=== PATIENT | male | born 1995 | race Hispanic/Latino ===

== ENCOUNTER 2022-06-16 10:27 | Emergency (ER) | payer SELFPAY ==
--- NOTE | 2022-06-16 10:36 | ED.URI ---
HPI - URI/Sore Throat General Chief Complaint: Upper Respiratory Infection Stated Complaint: Cough/Fever/SOB Time Seen by Provider: 06/16/22 10:37 Source: patient Mode of arrival: ambulatory Limitations: no limitations History of Present Illness HPI Narrative: John is a 27-year-old male patient presenting to the clinic today with complaints of cough, fever, shortness of breath times 2-3 days. He reports he is short of breath with exertion as well as talking. Rate shortness breath a 6/10 currently. He denies any chest pain. Productive cough with yellow phlegm. History of scoliosis and bad pneumonia in the past that caused him to be admitted [facility] while he was in a coma MD elicited complaint: fever, cough and other (Shortness of breath) Related Data Home Medications Medication Instructions Recorded Confirmed No Home Medications 06/16/22 06/16/22 Allergies Allergy/AdvReac Type Severity Reaction Status Date / Time No Known Allergies Allergy Verified 06/16/22 10:46 Review of Systems Review of Systems: Pertinent positives per HPI. Patient denies any rash, headache, visual changes, dizziness, chest pain, palpitations, nausea, vomiting, diarrhea, constipation, abdominal pain, or any urinary issues. [facility] Past Medical History Medical History (Updated 06/16/22 @ 14:15 by Tamar Franco PA-C) Morbid obesity Scoliosis Social History Social History (Updated 06/16/22 @ 14:13 by Tamar Franco PA-C) Social History: Surrogate medical decision maker: Alyson Field, sister. Code status: Full code. Comments At the time of my signature, I reviewed and agree with the nursing past medical, surgical, social, and family history. There is no relevant family history pertinent to the patient complaint. Exam Narrative: General: Well-developed, well nourished, in mild distress, severe scoliosis, short stature Head: Normocephalic, atraumatic Eyes: Pupils equally round and reactive to light bilaterally, EOM intact, sclera and conjunctive clear, no discharge, lids normal Ears: TMs intact and clear, ear canals clear, no drainage, grossly hearing normal. Nose: Nares patent, clear nasal discharge, no inflammation, no sinus tenderness. Mouth: Oral pharynx without lesions or masses, good dentition, MMM. Neck: Supple, trachea midline, no enlargement of anterior or posterior cervical nodes, no thyroid masses or goiter palpable. Cardio: Tachycardic- regular rate and rhythm, s1 and s2 normal, no murmur appreciated. Resp: Lungs sounds absent on left posterior lung treviño, no rhonchi, rales, wheezing or rubs, no retractions, SpO2 initially 83% on room air-worst was 80%-placed on 5 L of O2 via nasal cannula and SpO2 increase to 97% Extremities: No deformity, no edema, dusky nail beds, capillary refill greater than 3 seconds, peripheral pulses palpable and strong. Course Course Emergency Course: Portions of this record may have been created with voice recognition software. Level of Care: Express Care Visit Vital Signs Vital signs: Vital Signs Temperature 39.6 C H 06/16/22 10:43 Pulse Rate 127 H 06/16/22 10:43 Respiratory Rate 22 H 06/16/22 10:43 Blood Pressure 157/99 H 06/16/22 10:43 Pulse Oximetry 83 L 06/16/22 10:43 Oxygen Delivery Room Air 06/16/22 10:43 Temperature 39.6 C H 06/16/22 10:43 Pulse Rate 121 H 06/16/22 11:58 Respiratory Rate 28 H 06/16/22 11:58 Blood Pressure 157/99 H 06/16/22 10:43 Pulse Oximetry 96 06/16/22 11:58 Oxygen Delivery Nasal Cannula 06/16/22 11:58 Oxygen Flow Rate 4 06/16/22 11:58 Vital signs reviewed MDM - URI/Sore Throat MDM Narrative Medical decision making narrative: At the time of visit patient is resting on exam table. O2 at 5 L placed on patient via nasal cannula and that brought his SpO2 up to 97%. COVID test was obtained and was positive in the clinic today. Recommend transfer to the ER for further evaluation and gabe
[2022-06-16 10:43] VITALS: BP 157/99; PULSE 127; RESP 22; TEMP 39.6; O2SAT 83
[2022-06-16 10:46] VITALS: PULSE 136; RESP 30; O2SAT 80
[2022-06-16] MEDS: ACETAMINOPHEN 500 MG TABLET 1000 MG PO (10:56)
[2022-06-16 11:03] VITALS: PULSE 120; RESP 28; O2SAT 95
[2022-06-16 11:58] VITALS: PULSE 121; RESP 28; O2SAT 96
== END 2022-06-16 11:03 | disposition short-term general hospital (02) ==
PROVIDERS: Emergency Provider Nurse Practitioner Family
DX: U07.1 COVID-19 (principal); R09.02 Hypoxemia; R06.02 Shortness of breath
CPT/HCPCS: 87426; 99205; A9270; C9803; G0463

== ENCOUNTER 2022-06-16 11:18 | Inpatient (IN) | payer SELFPAY ==
[2022-06-16] VITALS (16 sets, daily range): BP systolic 139–160; BP diastolic 70–111; PULSE 82–118; RESP 20–34; TEMP 36.9–39.7; O2SAT 92–99
--- NOTE | ~2022-06-16 | XR_ITS ---
EXAMINATION: XR chest 1V portable DATE: 06/16/2022 11:54 INDICATION: Shortness of breath. Fever. TECHNIQUE: A single frontal view of the chest was obtained. COMPARISON: None. FINDINGS: There are airspace opacities in the right mid and lower lung zones and left perihilar regio n. No pleural effusion or pneumothorax. Cardiomegaly is noted. There is a fixation dolly overlying the spine. IMPRESSION: 1. Airspace opacities in right mid and lower lung zones and left perihilar region, consistent with pn eumonia. 2. Cardiomegaly. Reviewed, dictated and finalized at location A. [facility] [employer] IMPRESSION: 1. Airspace opacities in right mid and lower lung zones and left perihilar nanci on, consistent with pneumonia. 2. Cardiomegaly.
--- NOTE | 2022-06-16 11:18 | ECG_ITS ---
Measurements Intervals [place] Rate: 120 P: 47 NC: 157 QRS: 188 QRSD: 137 T: 19 QT: 337 QTc: 476 Interpretive Statements SINUS TACHYCARDIA ATRIAL PREMATURE COMPLEX RIGHT BUNDLE BRANCH BLOCK LEFT POSTERIOR FASCICULAR BLOCK BASELINE WANDER- V3 ABNORMAL ECG NO PREVIOUS ECG AVAILABLE FOR COMPARISON Electronically Signed On 06-16-2022 14:37:08 INSTRUMENT ASSEMBLER by Clayton Smith D.O.
[2022-06-16 11:40] LABS: Alveolar/Arterial O2 Gradient 177.8 mmHg; Base Excess ABG 0.7 mEq/l (+/-2.0); Device NASAL CANNULA; Fractional Inspired Oxygen 44 %; HCO3 ABG 27.2 mEq/l (22.0-26.0); Modified Allen's Test Pass; Oxygen Content ABG 20.8 %vol (16.0-22.0); Oxyhemoglobin 93.5 % THb (90.0-100.0); PCO2 ABG 50.3 mmHg (35.0-45.0); PO2 ABG 78.6 mmHg (80.0-100.0); PO2 FiO2 Ratio Arterial Blood 1.79 %; Site Drawn RIGHT RADIAL; Total Hemoglobin 15.8 g/dL (12.0-18.0); pH ABG 7.351 (7.350-7.450)
[2022-06-16 11:56] LABS: Basophils Percent Auto 0.3 % (0.2-1.2); Eosinophils Absolute Auto 0.2 K/mm3 (0-0.3); Eosinophils Percent Auto 1.7 % (0-4.4); Hematocrit 47.7 % (42.0-52.0); Hemoglobin 15.4 g/dL (14.0-18.0); Immature Granulocyte Absolute 0.26 K/mm3 (0.00-0.031); Immature Granulocyte Percent A 2.7 % (0-0.5); Lymphocytes Absolute Auto 1.04 K/mm3 (0.9-3.2); Lymphocytes Percent Auto 10.7 % (18.3-44.2); Mean Corpuscular HGB Conc 32.3 g/dl (32-36); Mean Corpuscular Hemoglobin 30.3 pg (26-34); Mean Corpuscular Volume 93.7 fl (80-100); Mean Platelet Volume 10.7 fl (7.4-10.4); Monocytes Percent Auto 10.2 % (2.6-8.5); Neutrophils Absolute Auto 7.2 K/mm3 (1.3-6.7); Neutrophils Percent Auto 74.4 % (45.5-73.1); Platelet Count Result 141 k/mm3 (150-375); Red Blood Count 5.09 M/mm3 (4.6-6.20); Red Cell Distribution Width 12.5 % (11.5-14.5); White Blood Count 9.7 K/mm3 (4.5-10.0)
[2022-06-16 12:06] LABS: INR 1.1; Prothrombin Time 13.6 Seconds (11.1-14.7)
[2022-06-16 12:07] LABS: Partial Thromboplastin Time 29.8 SECONDS (22.3-36.8)
[2022-06-16 12:11] LABS: Alanine Aminotransferase 76 U/L (6-50); Albumin Level 4.3 g/dL (3.5-5.1); Alkaline Phosphatase 66 U/L (38-126); Anion Gap 7 mmol/L (8-16); Aspartate Amino Transferase 48 U/L (17-59); Bilirubin,Total 0.4 mg/dL (0.2-1.3); Blood Urea Nitrogen 11 mg/dL (9-20); Calcium 8.3 mg/dL (8.4-10.2); Carbon Dioxide 28 mmol/L (22-30); Chloride 104 mmol/L (98-107); Estimated Glomerular Filt Rate > 60; Glucose 111 mg/dL (65-110); Potassium 4.4 mmol/L (3.4-5.0); Sodium 139 mmol/L (137-145)
[2022-06-16 12:20] LABS: NT Pro B Type Natriuretic Pept < 20 pg/mL (19.9-100)
[2022-06-16] MEDS: SODIUM CHLORIDE 0.9% IV 1,000 ML 999 ML IV CONT (12:33)
--- NOTE | 2022-06-16 12:51 | ED.SOB ---
HPI - SOB/Dyspnea General Chief Complaint: Shortness of Breath/Dyspnea Stated Complaint: COVID+, SOB History of Present Illness HPI Narrative: Patient is a 27-year-old male who presents ER with shortness of breath. Reports she started having a sore throat 3 days ago with productive cough. Woke up this morning was very short of breath. Found to be hypoxic at the urgent care. He was also COVID-positive. He is vaccinated. No chest pain or chest pressure. No other complaints. He has history of pneumonia in the past that required him to be trached. Related Data Home Medications Medication Instructions Recorded Confirmed No Home Medications 06/16/22 06/16/22 Allergies Allergy/AdvReac Type Severity Reaction Status Date / Time No Known Allergies Allergy Verified 06/16/22 10:46 Review of Systems Review of Systems: All systems reviewed & are unremarkable except as noted in HPI and below Constitutional: Constitutional: Denies chills, Reports fatigue and Denies fever(s) ENT: Denies nasal congestion and Reports sore throat Cardiovascular: Cardiovascular: Reports chest pain, Denies rapid heart rate and Denies radiating jaw, neck or arm pain Respiratory: Respiratory: Reports cough, Reports dyspnea and Denies wheezing Gastrointestinal: Gastrointestinal: Denies abdominal pain, Denies nausea and Denies vomiting PMFSH Past Medical History Medical History (Updated 06/16/22 @ 19:26 by David Connolly MD) Morbid obesity Scoliosis Surgical History Surgical History (Updated 06/16/22 @ 19:25 by David Connolly MD) History of back surgery History of tracheostomy Social History Social History (Updated 06/16/22 @ 14:13 by Tamar Franco PA-C) Social History: Surrogate medical decision maker: Alyson Field, sister. Code status: Full code. Exam Narrative: GENERAL: Well-appearing, morbidly obese, and in no acute distress. HEAD: Normocephalic, atraumatic. EYES: PERRL and EOMI. ENT: Mucous membranes moist. CHEST: Clear to auscultation. No respiratory distress. HEART: Tachycardic and regular. Normal peripheral pulses. ABDOMEN: Soft, nontender, nondistended. EXTREMITIES: Normal range of motion. No edema. SKIN: Warm, dry, no rash. NEURO: Alert and oriented x3. PSYCH: Normal mood and affect. Course Course Emergency Course: Patient resting comfortably. Informed of results. Patient given Decadron and will likely require remdesivir which hospitalist service will administer. Accepted by hospitalist service. Vital Signs Vital signs: Vital Signs Temperature 103.5 F H 06/16/22 11:26 Pulse Rate 118 H 06/16/22 11:26 Respiratory Rate 24 H 06/16/22 11:26 Blood Pressure 160/111 H 06/16/22 11:26 Pulse Oximetry 99 06/16/22 11:26 Oxygen Delivery Nasal Cannula 06/16/22 11:26 Oxygen Flow Rate 6 06/16/22 11:26 Temperature 99.1 F 06/16/22 15:00 Pulse Rate 83 06/16/22 16:00 Respiratory Rate 20 06/16/22 15:00 Blood Pressure 150/91 H 06/16/22 15:00 Pulse Oximetry 95 06/16/22 15:00 Oxygen Delivery Nasal Cannula 06/16/22 12:41 Oxygen Flow Rate 4 06/16/22 12:41 MDM - SOB/Dyspnea Lab Data 06/16/22 11:51 06/16/22 11:51 Labs: Lab Results 06/16/22 06/16/22 06/16/22 Range/Units 11:51 11:51 11:51 WBC 9.7 (4.5-10.0) K/mm3 RBC 5.09 (4.6-6.20) M/mm3 Hgb 15.4 (14.0-18.0) g/dL Hct 47.7 (42.0-52.0) % MCV 93.7 (80-100) fl MCH 30.3 (26-34) pg MCHC 32.3 (32-36) g/dl RDW 12.5 (11.5-14.5) % Plt Count 141 L (150-375) k/mm3 MPV 10.7 H (7.4-10.4) fl Immature Gran % (Auto) 2.7 H (0-0.5) % Neut % (Auto) 74.4 H (45.5-73.1) % Lymph % (Auto) 10.7 L (18.3-44.2) % [place] % (Auto) 10.2 H (2.6-8.5) % Eos % (Auto) 1.7 (0-4.4) % Baso % (Auto) 0.3 (0.2-1.2) % Lymph # (Auto) 1.04 (0.9-3.2) K/mm3 [place] # (Auto) 1.0 H (0.1-0.6) K/mm3 Eos # (Auto) 0.2 (0-0.3) K/mm3
--- NOTE | 2022-06-16 15:00 | ADMGEN ---
This patient, John Escalona, was admitted to Medical Room 251-. Patient/family oriented to hospital policies and general routines including ID bracelet, bed and alarms, visiting hours, pain management, procedures, bathroom and other care routines, personal items, smoking policy, room service/diet, and visiting hours. Information on how to activate the Rapid Response Team has been discussed. Patient/Family are encouraged to report perceived risks to care and to ask questions if they do not understand what they are told or what they should do.
[2022-06-16] MEDS: ACETAMINOPHEN 325 MG TABLET 650 MG PO (16:18)
--- NOTE | 2022-06-16 20:00 | PM.IMHP ---
H&P: HPI History of Present Illness Date/Time: 06/16/22 20:00 Chief Complaint: Shortness of breath, hypoxia, COVID positive.. Narrative: This is a very pleasant 27-year-old male with morbid obesity, scoliosis, and history of Influenza B pneumonia with concomitant bacterial pneumonia requiring intubation and subsequent tracheostomy several years ago who presented to the emergency department via EMS from a local [facility] for evaluation of shortness of breath and hypoxia. Patient provides the following history. He has not felt well for a couple of days with fever, cough productive of yellowish phlegm, dyspnea on exertion, and changes in smell. He has been taking [id number] cold and flu medications and acetaminophen to help with his symptoms. Today he felt more short of breath and he went to [facility] today where he was found to be hypoxic in the 80s. He also tested positive for COVID (vaccinated, not boosted). On arrival to the ED he had a temperature of 103.5? F, was tachycardic, and mildly tachypneic. Chest x-ray showed cardiomegaly and airspace opacities in the right mid and lower lung zones and left perihilar region consistent with pneumonia. Pertinent labs include a WBC count of 9.7, sodium 139, BUN 11, creatinine 0.40, AST 40, ALT 76, proBNP less than 20. He has since defervesced after receiving 1 g of IV acetaminophen. He was given dexamethasone 6 mg IV x1 and he is being admitted in this setting for further treatment and close observation. Review of Systems Review of Systems: 12 systems were reviewed. He has a bit of a headache and mild sore throat. No chest or pleuritic pain. He denies palpitations and sensations of racing heart. He denies lower extremity edema, calf pain, and tenderness. No history of venous thromboembolism. Appetite has been okay with some nausea. He denies vomiting and diarrhea. Except as documented, all other systems were reviewed and are negative. [facility] Past Medical History Medical History (Updated 06/16/22 @ 23:53 by Tamar Franco PA-C) Influenza with bronchopneumonia Morbid obesity Scoliosis Surgical History Surgical History (Updated 06/16/22 @ 23:50 by Tamar Franco PA-C) History of back surgery For scoliosis. History of tracheostomy Family History Family History (Updated 06/16/22 @ 23:50 by Tamar Franco PA-C) Other Diabetes mellitus Hypertension Social History Social History (Updated 06/16/22 @ 23:51 by Tamar Franco PA-C) Social History: Surrogate medical decision maker: Alyson Field, sister. Code status: Full code. Smoking status: Never smoker Alcohol intake: never Substance use: never Lack of Transportation: No Lack of Food: Never True Current Housing: I Have Housing Concerned About Future Housing: No Difficulty Paying Gas/Electric Bills: No Difficulty Paying for Meds: No Currently Unemployed: No Education: High School Diploma/GED Difficulty w/ Childcare or Family Care: No Additional living arrangements comments: Lives with family in [facility]. Occupation/Education: occupation Spiritual care concerns: No Meds Home Medications and Allergies Home Medications Medication Instructions Recorded Confirmed Type No Home Medications 06/16/22 06/16/22 History Allergies Allergy/AdvReac Type Severity Reaction Status Date / Time No Known Allergies Allergy Verified 06/16/22 10:46 Vital Signs Vital Signs - 24 hr 06/16/22 11:26 06/16/22 12:41 06/16/22 12:45 Temperature 103.5 F H Pulse Rate 118 H 101 H Respiratory Rate 24 H Blood Pressure 160/111 H Pulse Oximetry 99 98 Oxygen Delivery Nasal Cannula Nasal Cannula Oxygen Flow Rate 6 4 Exam Narrative: General: Mildly ill-appearing gentleman lying on his right side in bed in no acute distress. Weight: 137 kg. BMI: 61.0. HEENT: PERRL, EOMI. Sclera anicteric. Tacky mucous membranes. Oropharynx is crowded and not visuali
[2022-06-17] VITALS (18 sets, daily range): BP systolic 104–148; BP diastolic 52–79; PULSE 65–112; RESP 18–24; TEMP 36.6–37; O2SAT 92–100
[2022-06-17] MEDS: guaiFENesin 12 HR 600 MG TABCR 1200 MG PO ×3 (00:36→20:50)
[2022-06-17] MEDS: REMDESIVIR 200 MG/NS 250 ML 200 MG/250 ML BAG 250 MG IVPB (00:38)
[2022-06-17] MEDS: IPRATROPIUM BR 0.02% INH SOLN 0.5 MG/2.5 ML VIAL INHALATION ×4 (01:50→21:05)
[2022-06-17] MEDS: ALBUTEROL SULFATE NEB 2.5 MG/3 ML INH INHALATION ×4 (01:50→21:05)
[2022-06-17 08:42] LABS: INR 1.1; Prothrombin Time 13.6 Seconds (11.1-14.7)
[2022-06-17 08:44] LABS: Alanine Aminotransferase 68 U/L (6-50); Estimated Glomerular Filt Rate > 60
[2022-06-17] MEDS: ENOXAPARIN 40 MG/0.4 ML SYRINGE SUB-Q ×2 (10:36→20:49)
--- NOTE | 2022-06-17 12:07 | PM.IMPN ---
Progress Note: A&P Assessment and Plan (1) Acute respiratory failure with hypoxia: Code(s): J96.01 - Acute respiratory failure with hypoxia Status: Acute Assessment and Plan: Acute respiratory failure likely related to COVID-19 and pneumonia noted on imaging. pCO2 was a bit elevated at 50.3 mmHg on ABG and with a normal pH this likely indicates some component of chronic respiratory failure which may very well be secondary to obstructive sleep apnea with obesity hypoventilation syndrome. Patient would benefit from an outpatient sleep study though he does not think he has sleep apnea. Pulmonary embolism is a consideration because of the COVID diagnosis but seems less likely by history. (2) COVID-19: Code(s): U07.1 - COVID-19 Status: Acute Assessment and Plan: Patient was vaccinated but has not yet received the booster. He has been started on dexamethasone and remdesivir given his oxygen requirements. Initiate isolation precautions. Antipyretics, analgesics, and antiemetics available as needed. (3) Bilateral pneumonia: Code(s): J18.9 - Pneumonia, unspecified organism Status: Acute Assessment and Plan: Presumed COVID pneumonia it would be prudent to cover for bacterial pneumonia as well. Sputum to be attempted for culture. Check urinary antigens mycoplasma IgM. Mucinex and incentive spirometry ordered to help mobilize secretions and ensure that he is taking deep breaths. Continue scheduled bronchodilators. (4) Cardiomegaly: Code(s): I51.7 - Cardiomegaly Status: Acute Assessment and Plan: Echocardiogram ordered for a.m.. (5) Morbid obesity: Code(s): E66.01 - Morbid (severe) obesity due to excess calories Status: Acute Assessment and Plan: Healthier lifestyle choices and weight loss encouraged. (6) Elevated blood pressure reading: Code(s): R03.0 - Elevated blood-pressure reading, without diagnosis of hypertension Status: Acute Assessment and Plan: Blood pressures have been running in the 140s to 150 systolic. Continue to trend for now and initiate antihypertensives if indicated. Subjective Date/time seen: 06/17/22 12:07 Interval history: Patient feels better today, sob is improved. on 4 L on nasal canula Exam Narrative: General: Mildly ill-appearing gentleman lying on his right side in bed in no acute distress. Weight: 137 kg. BMI: 61.0. HEENT: PERRL, EOMI. Sclera anicteric. Tacky mucous membranes. Oropharynx is crowded and not visualized. Neck: Supple. Exam limited due to neck circumference. No obvious lymphadenopathy or JVD. Respiratory: Respirations do not appear to be on labored and he is speaking in full sentences. Coarse lung sounds at the bases with diffuse expiratory wheezing. Cardiovascular: Regular rate and rhythm with S1-S2. Gastrointestinal: Abdomen is soft, morbidly obese, nontender, and nondistended with positive bowel sounds. Skin: Warm and dry. No rash or lesions on limited exam. Extremities: No cyanosis, clubbing, or edema. No palpable knots or cords. Radial and pedal pulses intact. Neurological: Alert. Cranial nerves 2-12 are grossly intact. No gross focal deficits to casual conversation. Psychiatric: Pleasant and cooperative with normal mood and affect. . Objective Data Vital Signs Vital Signs: Vital Signs - 24 hr 06/16/22 12:41 06/16/22 12:45 06/16/22 12:32 Temperature Pulse Rate 101 H 105 H Respiratory Rate 27 H Blood Pressure 139/70 Pulse Oximetry 98 96 Oxygen Delivery Nasal Cannula Oxygen Flow Rate 4 06/16/22 12:46 06/16/22 13:00 06/16/22 13:28 Temperature Pulse Rate 102 H 104 H 99 Respiratory Rate 34 H 31 H 22 H Blood Pressure Pulse Oximetry 96 96 96 Oxygen Delivery Oxygen Flow Rate 06/16/22 13:30 06/16/22 13:45 06/16/22 14:00 Temperature Pulse Rate 95 96 93 Respiratory Rate 24 H 23 H 30
[2022-06-17] MEDS: REMDESIVIR 100 MG/NS 250 ML 100 MG/250 ML BAG 250 MG IVPB (22:37)
[2022-06-18] VITALS (15 sets, daily range): BP systolic 109–125; BP diastolic 52–56; PULSE 52–105; RESP 18; TEMP 36.7–36.8; O2SAT 92–97
[2022-06-18] MEDS: IPRATROPIUM BR 0.02% INH SOLN 0.5 MG/2.5 ML VIAL INHALATION ×3 (03:27→14:29)
[2022-06-18] MEDS: ALBUTEROL SULFATE NEB 2.5 MG/3 ML INH INHALATION ×3 (03:27→14:29)
[2022-06-18 06:32] LABS: INR 1.2; Prothrombin Time 14.7 Seconds (11.1-14.7)
[2022-06-18 06:47] LABS: Alanine Aminotransferase 60 U/L (6-50); Estimated Glomerular Filt Rate > 60
[2022-06-18] MEDS: guaiFENesin 12 HR 600 MG TABCR 1200 MG PO (09:14)
[2022-06-18] MEDS: ENOXAPARIN 40 MG/0.4 ML SYRINGE SUB-Q (09:14)
--- NOTE | 2022-06-18 12:29 | PM.DS ---
DS: Admitting Diagnosis Discharge Date 06/18/22 Admitting Diagnosis Acute on Chronic Resp Failure DS: Discharge Diagnosis Discharge Diagnosis (1) Bilateral pneumonia: Code(s): J18.9 - Pneumonia, unspecified organism Status: Acute (2) Morbid obesity: Code(s): E66.01 - Morbid (severe) obesity due to excess calories Status: Acute (3) COVID-19: Code(s): U07.1 - COVID-19 Status: Acute (4) Acute respiratory failure with hypoxia: Code(s): J96.01 - Acute respiratory failure with hypoxia Status: Acute DS: Summary Hospital Course Reason for hospitalization: Acute on Chronic Resp Failure COPD Hospital Course: ?27-year-old male with morbid obesity, scoliosis, and history of Influenza B pneumonia with concomitant bacterial pneumonia requiring intubation and subsequent tracheostomy? several years ago who presented to the emergency department via EMS from a local [facility] for evaluation of shortness of breath and hypoxia.Was found to be COVID positive along with B/L Superimposed bacterial PNA. Was started on Steroids, abx, he uses off and on O2 at home, Steroid was stopped, he was doing well on RA upon rest. Discharged on 7 days of oral Augmentin. Discharged home in stable condition. Status at Discharge Functional status at discharge: independent ambulation Overall status at discharge: patient is back to baseline Time Spent with Patient Time attestation: Total time spent providing and/or coordinating discharge services: Exam Const: General: comfortable HENMT: Face/Nose/Sinus: Normal nares present Mouth: Yes moist mucous membranes Eyes: General: appearance normal, both eyes and all related structures Sclera: sclerae normal Neck: Neck: supple Resp: Effort & Inspection: normal respiratory effort Cardio: Rate: regular rate Rhythm: regular rhythm GI: GI Palp: Yes Soft to palpation Auscultation: normal bowel sounds Skin: General skin exam: normal color Extrem: General: normal to inspection DS: Data Data Completed and Pending Labs on day of discharge: Labs from last 24 hours 06/18/22 06/18/22 06/17/22 06:05 06:05 12:25 PT 14.7 INR 1.2 Creatinine 0.50 L Estim Creat Clear Calc Not Reportable Estimated GFR > 60 ALT 60 H Ur L.pneumophila Ag Pending Urine Pneumococcal Ag Pending Discharge Plan Discharge Attending physician on discharge: Marti Honeycutt Discharging Clinician: Marti Honeycutt Anticipated Discharge Date/Time: 06/18/22 12:27 Patient Disposition: Home, Self-Care Activity: as tolerated Diet: as tolerated Patient Instructions: Antibiotic Form Stand Alone Forms: General Discharge Information, Work/School Release IP Follow-up/Referrals: PHYSICIAN NOT ON STAFF,NONSTAFF [Primary Care Provider] - 2 Weeks Discharge Medications: New guaifenesin [Mucus Relief ER] 600 mg Tablet Extended Release 12hr 1,200 mg PO Q12HR Qty: 20 0RF amoxicillin-pot clavulanate [Augmentin] 500-125 mg tablet 1 tablet PO Q12H Qty: 14 0RF Date of admission: 06/16/22 14:43 Primary Care Provider: PHYSICIAN NOT ON STAFF,NONSTAFF Admitting Provider: Shaun Ibarra Attending physician on admission: Shaun Ibarra Condition: Stable [facility] Discharge Billing Hospital Discharge Hospital Discharge: [id number] Hosp D/C >30 Min
[2022-06-20 20:14] LABS: Mycoplasma IgM Antibody Titer 142 U/mL (<770)
[2022-06-21 21:23] LABS: Pneumococcal Antigen Urine Not Detected (Not Detected)
[2022-06-23 06:19] LABS: Legionella pneumophila Ag Ur Not Detected (Not Detected)
== END 2022-06-18 16:59 | disposition home or self-care (01) | DRG 137 ==
LOC: ANHED 13:03 → ANH2MED 13:39
PROVIDERS: Physician Assistant; Admitting Provider Internal Medicine; Emergency Provider Emergency Medicine; Visit Provider Internal Medicine
DX: U07.1 COVID-19 (principal); J96.21 Acute and chronic respiratory failure with hypoxia; J12.82 Pneumonia due to coronavirus disease 2019; J15.9 Unspecified bacterial pneumonia; I51.7 Cardiomegaly; E66.01 Morbid (severe) obesity due to excess calories; J44.0 Chronic obstructive pulmonary disease with (acute) lower respiratory infection; G47.33 Obstructive sleep apnea (adult) (pediatric); R03.0 Elevated blood-pressure reading, without diagnosis of hypertension; Z68.44 Body mass index [BMI] 60.0-69.9, adult
CPT/HCPCS: 36415; 36600; 71045; 80053; 82565; 82805; 83880; 84460; 85025; 85610; 85730; 86738; 87449; 87899; 93005; 94640; 96361; 96374; 99285; A9270; G0378; G0379; J0248; J0456; J0696; J1100; J1650; J7030